=== PATIENT | female | born 1985 | race Caucasian/White ===

== ENCOUNTER 2019-05-10 13:34 | Emergency (ER) | payer OTHER ==
[~2019-05-10] VITALS: Ht 167.6 cm; Wt 60.8 kg
== END 2019-05-10 16:58 | disposition home or self-care (01) ==
LOC: ER 13:34
DX: M94.0 Chondrocostal junction syndrome [Tietze] (principal)

== ENCOUNTER 2020-07-07 12:36 | Emergency (ER) | payer OTHER ==
[~2020-07-07] VITALS: Ht 170.2 cm; Wt 63.5 kg
[2020-07-07] MEDS ORDERED: ZITHROMAX200 MG PO (21:14)
[2020-07-07] MEDS ORDERED: ZITHROMAX500 MG PO (21:14)
== END 2020-07-07 22:35 | disposition home or self-care (01) ==
LOC: ER 12:36
DX: B34.9 Viral infection, unspecified (principal); A90 Dengue fever [classical dengue]; B96.0 Mycoplasma pneumoniae [M. pneumoniae] as the cause of diseases classified elsewhere; Z20.822 Contact with and (suspected) exposure to COVID-19